=== PATIENT | male | born 1940 | race Caucasian/White ===

== ENCOUNTER 2023-10-14 05:21 | Inpatient (IN) | payer MEDICARE, MEDICAID, SELFPAY ==
--- NOTE | 2023-10-14 03:55 | ADMGEN ---
This patient, Davis Michael, was admitted to Medical Room 347-. Patient/family oriented to hospital policies and general routines including ID bracelet, bed and alarms, visiting hours, pain management, procedures, bathroom and other care routines, personal items, smoking policy, room service/diet, and visiting hours. Information on how to activate the Rapid Response Team has been discussed. Patient/Family are encouraged to report perceived risks to care and to ask questions if they do not understand what they are told or what they should do.
[2023-10-14 04:09] VITALS: BMI 28.6
[2023-10-14 06:00] VITALS: BP 156/84; PULSE 106; RESP 21; TEMP 36.3; O2SAT 100
[2023-10-14 06:10] LABS: Bacteria Urine None Seen /hpf; RBC Urine >100 /hpf (0-2); Squamous Epithelial Cell Urine None Seen /hpf (Few); WBC Urine >100 /hpf (0-3)
[2023-10-14 06:11] LABS: Appearance Urine Cloudy (Clear); Bilirubin Urine Negative (Negative); Blood Urine 3+ (Negative); Glucose Urine UA Negative (Negative); Ketones Urine Negative (Negative); Leukocyte Esterase Ur 3+ LEU/UL (Negative); Nitrate Urine Negative (Negative); Protein Urine 1+ mg/dL (Negative); Specific Grav Ur 1.016 (1.001-1.035); Urobilinogen Urine 0.2 mg/dL (<2.0); pH Urine 7.5 (5.0-9.0)
[2023-10-14 06:17] LABS: Color Urine Yellow (Yellow)
[2023-10-14 06:18] LABS: Add Urine Microscopic? YES
[2023-10-14 07:01] LABS: Basophils Percent Auto 0.4 % (0.2-1.2); Eosinophils Absolute Auto 0.1 K/mm3 (0-0.3); Eosinophils Percent Auto 0.6 % (0-4.4); Hematocrit 37.8 % (42.0-52.0); Hemoglobin 12.6 g/dL (14.0-18.0); Immature Granulocyte Absolute 0.04 K/mm3 (0.00-0.031); Immature Granulocyte Percent A 0.5 % (0-0.5); Lymphocytes Absolute Auto 0.66 K/mm3 (0.9-3.2); Lymphocytes Percent Auto 7.7 % (18.3-44.2); Mean Corpuscular HGB Conc 33.3 g/dl (32-36); Mean Corpuscular Hemoglobin 30.7 pg (26-34); Mean Platelet Volume 9.8 fl (7.4-10.4); Monocytes Absolute Auto 0.6 K/mm3 (0.1-0.6); Monocytes Percent Auto 6.4 % (2.6-8.5); Neutrophils Absolute Auto 7.2 K/mm3 (1.3-6.7); Neutrophils Percent Auto 84.4 % (45.5-73.1); Platelet Count Result 206 k/mm3 (150-375); Red Blood Count 4.11 M/mm3 (4.6-6.20); Red Cell Distribution Width 13.9 % (11.5-14.5); White Blood Count 8.6 K/mm3 (4.5-10.0)
[2023-10-14] MEDS: traMADol HCL (*CRX) 50 MG TABLET PO (07:05)
[2023-10-14] MEDS: LEVOTHYROXINE SODIUM 125 MCG TABLET PO (07:07)
[2023-10-14 07:11] LABS: Lactic Acid Reflex 1.6 mmol/L (0.7-2.0)
[2023-10-14 07:15] LABS: Anion Gap 9 mmol/L (4-12); Blood Urea Nitrogen 17 mg/dL (9-20); Calcium 9.3 mg/dL (8.4-10.2); Carbon Dioxide 25 mmol/L (22-30); Chloride 107 mmol/L (98-107); Estimated Glomerular Filt Rate > 60; Glucose 143 mg/dL (65-110); Magnesium 2.1 mg/dL (1.6-2.3); Potassium 4.3 mmol/L (3.4-5.0); Sodium 141 mmol/L (137-145)
[2023-10-14 07:16] LABS: INR 1.1; Prothrombin Time 14.4 Seconds (11.1-14.7)
[2023-10-14 07:18] LABS: Partial Thromboplastin Time 27.9 Seconds (22.3-36.8)
--- NOTE | 2023-10-14 07:29 | PM.IMHP ---
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 Patient is a poor historian and most of history was obtained from previous medical records. Patient originally presented to [facility] from [facility] complaining of lower belly pain, some back pain and was noted to have some blood coming from his penis on to his depends. Workup in the hospital included labs which which revealed a white blood cell count of 7.94, hemoglobin 11.7, creatinine 1.29. A UA was obtained which shown trace leukocyte, 3+ protein, trace ketone, 1 urobilinogen, 3+ blood, trace bacteria. CT of the abdomen and pelvis without contrast shown left hydro ureter pelviectasis and mildly delayed left nephrogram without any calculi which could be from a recently passed kidney stone, there is an incidentally noted 1.7 cm cystic lesion in the pancreatic tail, mild lingular tree-in-bud nodularity. Patient was given Zosyn and IV fluids while at [facility]. Camargo was placed at [facility] and manually irrigated with 1 L and CBI was started. Patient was transferred to [facility] for higher level of care as they do not have Urology services at [facility] in [place]. Blood cultures were also obtained at outside hospital. Labs revealed WBC 8.6, Hgb 12.6, INR 1.1. UA was obtained which shown a urine protein 1+, 3+ urine blood, 3+ leukocyte, >100 urine RBC, > 100 urine WBC. Urine culture was obtained and is pending. Review of Systems Review of Systems: ROS unobtainable: Yes unobtainable due to mental status [facility] Past Medical History Medical History (Updated 10/14/23 @ 14:03 by Denita Jackson APRN) Arthritis Bladder cancer Blindness Glaucoma Gross hematuria Hyperlipidemia Hypertension Hypothyroidism Prostate cancer Stroke Surgical History Surgical History H/O cystoscopy H/O knee surgery History of bladder surgery Family History Family History Mother Alzheimer's dementia Father Cancer Sibling Cancer Social History Social History Smoking status: Former smoker Tobacco type: cigarettes Alcohol intake: former Drinks per week: 1 Alcohol use details: 1 Beer a week Substance use: never Do You Feel Safe in your Home?: Yes Lack of Transportation: No Lack of Food: Never True Current Housing: I Have Housing Concerned About Future Housing: No Difficulty Paying Gas/Electric Bills: No Difficulty Paying for Meds: No Currently Unemployed: No Education: Don't Know Difficulty w/ Childcare or Family Care: No Spiritual care concerns: No Meds Home Medications and Allergies Home Medications Medication Instructions Recorded Confirmed Type acetaminophen 650 mg tablet 650 mg PO Q4H PRN Pain (Scale 10/14/23 10/14/23 History Score 1-3) aspirin 81 mg tablet 81 mg PO DAILY 10/14/23 10/14/23 History brimonidine 0.15 % eye drops 1 drp EACH EYE TID 10/14/23 10/14/23 History cholecalciferol (vitamin D3) 1,000 caplet PO DAILY 10/14/23 10/14/23 History diltiazem HCl 60 mg tablet 60 mg PO Q12H 10/14/23 10/14/23 History docusate sodium 100 mg capsule 100 mg PO BID 10/14/23 10/14/23 History dorzolamide 22.3 mg-timolol 6.8 1 drp EACH EYE TID 10/14/23 10/14/23 History mg/mL eye drops ferrous sulfate 325 mg (65 mg 325 mg PO EVERY OTHER DAY 10/14/23 10/14/23 History
--- NOTE | 2023-10-14 07:45 | PC.NURSE ---
RN gave update to patient's daughter Tierney via telephone.
[2023-10-14] MEDS: CHOLECALCIFEROL 1,000 UNITS TABLET 1000 UNITS PO (09:09)
[2023-10-14] MEDS: DORZOLAMIDE/TIMOLOL OPHTH SOL 10 ML BOTTLE 1 DROP EACH EYE ×2 (09:09→16:51)
[2023-10-14] MEDS: GABAPENTIN 300 MG CAPSULE PO ×2 (09:09→16:51)
[2023-10-14] MEDS: BRIMONIDINE TARTRATE 0.15% 5 ML OPHTH SOLN 1 DROP EACH EYE ×2 (09:09→16:51)
[2023-10-14] MEDS: PANTOPRAZOLE 40 MG TABLET PO (09:09)
[2023-10-14] MEDS: FLUOROMETHOLONE 0.1% OP SUSP 5 ML BTL 1 DROP RIGHT EYE ×2 (09:09→16:51)
[2023-10-14] MEDS: FOLIC ACID 1 MG TABLET PO (09:09)
[2023-10-14] MEDS: ASPIRIN 81 MG ENTERIC TABLET PO (09:09)
[2023-10-14] MEDS: DOCUSATE SODIUM 100 MG CAPSULE PO ×2 (09:09→16:51)
[2023-10-14] MEDS: LOSARTAN POTASSIUM 50 MG TABLET PO (09:09)
[2023-10-14] MEDS: dilTIAZem HCL 60 MG TABLET PO ×2 (09:14→20:08)
--- NOTE | 2023-10-14 09:44 | WPDURCON ---
Assessment and Plan Assessment and plan (1) Gross hematuria: Code(s): R31.0 - Gross hematuria Status: Acute Assessment and Plan: Likely secondary to bladder cancer. Urine is clear at this time. No need for acute urologic intervention. (2) Bladder cancer: Code(s): C67.9 - Malignant neoplasm of bladder, unspecified Status: Acute Assessment and Plan: S/p TURBT with gemcitabine instillation 08/26/2023. Plan was for follow-up in 2 weeks to discuss pathology and consider BCG. Unsure if this follow-up has been completed yet. He will need to continue with close follow-up with his primary urologist Urology Consult Note HPI Date Seen: 10/14/23 Requesting Physician: Zonia Staples MD Primary Care Provider: Tarun Pulliam M.D. Consult Narrative Narrative: Davis Michael is a 82 year old male with history of high-grade bladder cancer s/p multiple bladder tumor resections and gemcitabine installation, most recently 08/26/2023 managed at [facility] in [place] who is being seen in consultation for gross hematuria. He presented to [facility] on 10/13/2023 from his nursing facility with findings of gross hematuria. On arrival, his vital signs were stable, he was afebrile, WBC was 7.9, creatinine 1.29, lactic within normal limits, UA with trace leukocytes, negative nitrates, 3+ blood, 0-[address] of his abdomen/pelvis was completed which showed bilateral cortical renal atrophy, [id number] left pelviectasis, moderate left hydroureter, mild distal right hydroureter, and decompressed bladder with presence of air, Camargo catheter in place. Patient is a very poor historian and not able to provide much history. He states that he typically voids spontaneously and does not have a chronic indwelling Camargo, therefore it seems that Camargo was placed in the ER, though this is unclear. The patient denies any precipitating symptoms. He is unable to provide any additional history. At the time of my evaluation, his vital signs are stable and he is afebrile, his white blood cell count remains within normal limits in creatinine is 1.0. Urine culture collected at this facility is pending. Review of Systems Review of Systems: ROS unobtainable: Yes unobtainable due to mental status [facility] Past Medical History Medical History (Updated 10/14/23 @ 14:03 by Denita Jackson APRN) Arthritis Bladder cancer Blindness Glaucoma Gross hematuria Hyperlipidemia Hypertension Hypothyroidism Prostate cancer Stroke Surgical History Surgical History H/O cystoscopy H/O knee surgery History of bladder surgery Family History Family History Mother Alzheimer's dementia Father Cancer Sibling Cancer Social History Social History Smoking status: Former smoker Tobacco type: cigarettes Alcohol intake: former Drinks per week: 1 Alcohol use details: 1 Beer a week Substance use: never Do You Feel Safe in your Home?: Yes Lack of Transportation: No Lack of Food: Never True Current Housing: I Have Housing Concerned About Future Housing: No Difficulty Paying Gas/Electric Bills: No Difficulty Paying for Meds: No Currently Unemployed: No Education: Don't Know Difficulty w/ Childcare or Family Care: No Spiritual care concerns: No Meds Home Medications and Allergies Home Medications Medication Instructions Recorded Confirmed Type acetaminophen 650 mg tablet 650 mg PO Q4H PRN Pain (Scale 10/14/23 10/14/23 History Score 1-3) aspirin 81 mg tablet 81 mg PO DAILY 10/14/23 10/14/23 History brimonidine 0.15 % eye drops 1 drp EACH EYE TID 10/14/23 10/14/23 History cholecalciferol (vitamin D3) 1,000 caplet PO DAILY 10/14/23 10/14/23 History diltiazem HCl 60 mg tablet 60 mg PO Q12H 10/14/23 10/14/23 Histo
[2023-10-14 11:57] VITALS: BMI 28.6
[2023-10-14 12:00] VITALS: BP 140/59; PULSE 89; RESP 16; TEMP 37; O2SAT 94
[2023-10-14 20:00] VITALS: BP 148/67; PULSE 99; RESP 16; TEMP 36.4; O2SAT 94
[2023-10-14] MEDS: LATANOPROST 0.005% OP SOLN 2.5 ML BTL 1 DROP EACH EYE (20:08)
[2023-10-15 05:14] LABS: Basophils Percent Auto 0.5 % (0.2-1.2); Eosinophils Absolute Auto 0.1 K/mm3 (0-0.3); Eosinophils Percent Auto 1.6 % (0-4.4); Hemoglobin 12.8 g/dL (14.0-18.0); Immature Granulocyte Absolute 0.05 K/mm3 (0.00-0.031); Immature Granulocyte Percent A 0.8 % (0-0.5); Lymphocytes Absolute Auto 0.87 K/mm3 (0.9-3.2); Mean Corpuscular HGB Conc 32.8 g/dl (32-36); Mean Corpuscular Hemoglobin 30.5 pg (26-34); Mean Corpuscular Volume 93.1 fl (80-100); Monocytes Absolute Auto 0.6 K/mm3 (0.1-0.6); Monocytes Percent Auto 8.8 % (2.6-8.5); Neutrophils Absolute Auto 4.6 K/mm3 (1.3-6.7); Neutrophils Percent Auto 74.3 % (45.5-73.1); Platelet Count Result 234 k/mm3 (150-375); Red Blood Count 4.19 M/mm3 (4.6-6.20); Red Cell Distribution Width 13.5 % (11.5-14.5); White Blood Count 6.2 K/mm3 (4.5-10.0)
[2023-10-15 05:29] LABS: Alanine Aminotransferase 11 U/L (6-50); Albumin Level 4.1 g/dL (3.5-5.1); Alkaline Phosphatase 144 U/L (38-126); Anion Gap 7 mmol/L (4-12); Aspartate Amino Transferase 22 U/L (17-59); Bilirubin,Total 0.7 mg/dL (0.2-1.3); Blood Urea Nitrogen 16 mg/dL (9-20); Calcium 9.9 mg/dL (8.4-10.2); Carbon Dioxide 31 mmol/L (22-30); Chloride 104 mmol/L (98-107); Estimated CRCL calculation 52 ml/min; Estimated Glomerular Filt Rate > 60; Glucose 118 mg/dL (65-110); Potassium 3.6 mmol/L (3.4-5.0); Sodium 142 mmol/L (137-145)
[2023-10-15] MEDS: LEVOTHYROXINE SODIUM 125 MCG TABLET PO (05:55)
[2023-10-15 06:17] VITALS: BP 159/79; PULSE 96; RESP 20; TEMP 36.3; O2SAT 100
[2023-10-15] MEDS: GABAPENTIN 300 MG CAPSULE PO ×2 (09:37→17:31)
[2023-10-15] MEDS: PANTOPRAZOLE 40 MG TABLET PO (09:37)
[2023-10-15] MEDS: dilTIAZem HCL 60 MG TABLET PO ×2 (09:38→21:15)
[2023-10-15] MEDS: CHOLECALCIFEROL 1,000 UNITS TABLET 1000 UNITS PO (09:38)
[2023-10-15] MEDS: ASPIRIN 81 MG ENTERIC TABLET PO (09:38)
[2023-10-15] MEDS: FOLIC ACID 1 MG TABLET PO (09:38)
[2023-10-15] MEDS: DOCUSATE SODIUM 100 MG CAPSULE PO ×2 (09:38→17:31)
[2023-10-15] MEDS: LOSARTAN POTASSIUM 50 MG TABLET PO (09:38)
--- NOTE | 2023-10-15 12:32 | P.PNIM_ITS ---
Progress Note: A&P Assessment and Plan (1) Gross hematuria: Code(s): R31.0 - Gross hematuria Status: Acute Assessment and Plan: 10/14/2023: * Likely due to history of bladder cancer * Is normally followed by urologist at [facility] in [place] * Originally presented to [facility] in [place] where they placed a Camargo catheter and started CBI. He was transferred here for higher level of care as they do not have a urologist. Currently his urine is clear and yellow. CBI is not indicated at this time. * UA at [facility] was obtained which shown trace leukocyte, 3+ protein, trace ketone, 1 urobilinogen, 3+ blood, trace bacteria * Urine culture and blood cultures were obtained at [facility] in [place]. We also have a urine culture pending here. * He was given a dose of Zosyn while in the ED at [facility] 10/15/23: * Resolved (2) Urinary tract infection: Code(s): N39.0 - Urinary tract infection, site not specified Status: Acute Assessment and Plan: 10/14/23: * UA revealed 1+ urine protein, 3+ urine blood, 3+ leukocytes, urine RBC greater than 100 urine WBC greater than 100. * Urine culture was obtained and is pending * He also has blood and urine cultures from [facility] in [place] that are still pending * Will start Rocephin 10/15/23: * Continue Rocephin * Urine culture pending (3) Bladder cancer: Code(s): C67.9 - Malignant neoplasm of bladder, unspecified Status: Acute Assessment and Plan: 10/14/23: * History of high-grade bladder cancer status post multiple bladder tumor resections and gemcitabine installation, managed at [facility] in [place] and most recent treatment was on 08/26/2023. 10/15/23: * No change (4) Prostate cancer: Code(s): C61 - Malignant neoplasm of prostate Status: Acute Assessment and Plan: 10/14/23: * Status post TURBT with gemcitabine installation on 08/25/24 10/15/23: * No change (5) Hypertension: Code(s): I10 - Essential (primary) hypertension Status: Acute Assessment and Plan: 10/14/23: * Continue losartan 10/15/23: * No change to current treatment plan (6) Hyperlipidemia: Code(s): E78.5 - Hyperlipidemia, unspecified Status: Acute Assessment and Plan: 10/14/23: * Continue aspirin, not on any statin 10/15/23: * No change to current treatment plan (7) Blindness: Code(s): H54.7 - Unspecified visual loss Status: Chronic Assessment and Plan: 10/14/23: * Of note, likely due to his acute angle glaucoma (8) Hypothyroidism: Code(s): E03.9 - Hypothyroidism, unspecified Status: Acute Assessment and Plan: 10/14/23: * Continue Synthroid 10/15/23: * No change to current treatment plan (9) Glaucoma: Code(s): H40.9 - Unspecified glaucoma Status: Acute Assessment and Plan: 10/14/23: * Continue brimonidine, latanoprost, and timolol drops 10/15/23: * No change to current treatment plan Time Spent With Patient Time with patient: 25 - 35 minutes Subjective Date/time seen: 10/15/23 12:32 Interval history: 10/14/23: This is an 82 year old male with a significant past medical history of hypertension, acute angle closure glaucoma, hyperlipidemia, 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
--- NOTE | 2023-10-15 12:32 | PM.IMPN ---
Progress Note: A&P Assessment and Plan (1) Gross hematuria: Code(s): R31.0 - Gross hematuria Status: Acute Assessment and Plan: 10/14/2023: Likely due to history of bladder cancer Is normally followed by urologist at [facility] in [place] Originally presented to [facility] in [place] where they placed a Camr[place] catheter and started CBI. He was transferred here for higher level of care as they do not have a urologist. Currently his urine is clear and yellow. CBI is not indicated at this time. UA at [facility] was obtained which shown trace leukocyte, 3+ protein, trace ketone, 1 urobilinogen, 3+ blood, trace bacteria Urine culture and blood cultures were obtained at [facility] in [place]. We also have a urine culture pending here. He was given a dose of Zosyn while in the ED at [facility] 10/15/23: Resolved (2) Urinary tract infection: Code(s): N39.0 - Urinary tract infection, site not specified Status: Acute Assessment and Plan: 10/14/23: UA revealed 1+ urine protein, 3+ urine blood, 3+ leukocytes, urine RBC greater than 100 urine WBC greater than 100. Urine culture was obtained and is pending He also has blood and urine cultures from [facility] in [place] that are still pending Will start Rocephin 10/15/23: Continue Rocephin Urine culture pending (3) Bladder cancer: Code(s): C67.9 - Malignant neoplasm of bladder, unspecified Status: Acute Assessment and Plan: 10/14/23: History of high-grade bladder cancer status post multiple bladder tumor resections and gemcitabine installation, managed at [facility] in [place] and most recent treatment was on 08/26/2023. 10/15/23: No change (4) Prostate cancer: Code(s): C61 - Malignant neoplasm of prostate Status: Acute Assessment and Plan: 10/14/23: Status post TURBT with gemcitabine installation on 08/25/24 10/15/23: No change (5) Hypertension: Code(s): I10 - Essential (primary) hypertension Status: Acute Assessment and Plan: 10/14/23: Continue losartan 10/15/23: No change to current treatment plan (6) Hyperlipidemia: Code(s): E78.5 - Hyperlipidemia, unspecified Status: Acute Assessment and Plan: 10/14/23: Continue aspirin, not on any statin 10/15/23: No change to current treatment plan (7) Blindness: Code(s): H54.7 - Unspecified visual loss Status: Chronic Assessment and Plan: 10/14/23: Of note, likely due to his acute angle glaucoma (8) Hypothyroidism: Code(s): E03.9 - Hypothyroidism, unspecified Status: Acute Assessment and Plan: 10/14/23: Continue Synthroid 10/15/23: No change to current treatment plan (9) Glaucoma: Code(s): H40.9 - Unspecified glaucoma Status: Acute Assessment and Plan: 10/14/23: Continue brimonidine, latanoprost, and timolol drops 10/15/23: No change to current treatment plan Time Spent With Patient Time with patient: 25 - 35 minutes Subjective Date/time seen: 10/15/23 12:32 Interval history: 10/14/23: This is an 82 year old male with a significant past medical history of hypertension, acute angle closure glaucoma, hyperlipidemia, 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 in [place], [place] for further evaluation of hematuria. Patient is a poor historian and most of history was obtained from previous medical records. Patient originally presented to [facility] complaining of lower belly pain, some back pain and was noted to have some blood coming from his penis on to his depends. Workup in the hospital included labs which which revealed a white blood cell count of 7.94
[2023-10-15 14:03] VITALS: BP 120/69; PULSE 94; RESP 19; TEMP 36.7; O2SAT 95
--- NOTE | 2023-10-15 14:50 | WPDUROPN2 ---
Progress Note: A&P Assessment and Plan (1) Gross hematuria: Code(s): R31.0 - Gross hematuria Status: Resolved Assessment and Plan: Resolved. Likely secondary to bladder cancer. Urine is clear at this time. No need for acute urologic intervention. Urine culture pending (2) Bladder cancer: Code(s): C67.9 - Malignant neoplasm of bladder, unspecified Status: Acute Assessment and Plan: S/p TURBT with gemcitabine instillation 08/26/2023. Plan was for follow-up in 2 weeks to discuss pathology and consider BCG. Unsure if this follow-up has been completed yet. He will need to continue with close follow-up with his primary urologist. Will need to be in touch with his nursing facility/family to ensure outpatient follow-up is being arranged appointments being kept Subjective Subjective Date/Time Seen: 10/15/23 14:50 Interval history: Doing well today. Not able to provide any history. Patient sitter at the bedside. Review of Systems Review of Systems: ROS unobtainable: Yes unobtainable due to mental status Exam Narrative: General: Awake, alert, comfortable, no acute distress HEENT: Normocephalic, atraumatic, blind, hard of hearing Respiratory: Normal respiratory effort, no accessory muscle use Abdomen: Nondistended, soft, nontender : Camargo catheter draining clear, light pink urine Skin: Normal coloration, warm and dry Psychiatric: Pleasantly confused, poor judgment insight Objective Data Vital Signs Vital Signs: Vital Signs - 24 hr 10/14/23 20:00 10/15/23 06:17 10/15/23 08:00 Temperature 97.5 F L 97.4 F L Pulse Rate 99 96 Respiratory Rate 16 20 Blood Pressure 148/67 H 159/79 H Pulse Oximetry 94 100 Oxygen Delivery Room Air 10/15/23 14:03 Temperature 98.1 F Pulse Rate 94 Respiratory Rate 19 Blood Pressure 120/69 Pulse Oximetry 95 Oxygen Delivery Intake/Output Intake/Output: Intake & Output 10/12/23 10/13/23 10/14/23 10/15/23 23:59 23:59 23:59 23:59 Intake Total 1650 360 Output Total 1500 1800 Balance 150 -1440 Meds/Results Medications: Active Medications Generic Name Dose Route Start Last Admin Trade Name Freq PRN Reason Stop Dose Admin Acetaminophen 650 mg 10/14/23 05:31 Acetaminophen 325 Mg Tablet PO Q4H PRN Mild Pain (1-3) or Fever Al Hydrox/Mg Hydrox/Simethicone 30 ml 10/14/23 05:31 Mag Hydrox/Al Hydrox/Simeth 30 Ml Udc PO QID PRN Dyspepsia Aspirin 81 mg 10/14/23 09:00 10/15/23 09:38 Aspirin 81 Mg Enteric Tablet PO 81 mg QAM DAISHA Administration Brimonidine Tartrate 1 drop 10/14/23 09:00 10/15/23 14:19 Brimonidine Tartrate 0.15% 5 Ml Ophth Soln EACH EYE Not Given TID DAISHA Diltiazem HCl 60 mg 10/14/23 09:00 10/15/23 09:38 Diltiazem Hcl 60 Mg Tablet PO 60 mg Q12HR [facility] Administration Docusate Sodium 100 mg 10/14/23 09:00 10/15/23 09:38 Docusate Sodium 100 Mg Capsule PO 100 mg BID DAISHA Administration Dorzolamide/Timolol 1 drop 10/14/23 09:00 10/15/23 14:19 Dorzolamide/Timolol Ophth Vivien 10 Ml Bottle EACH EYE Not Given TID [facility] Ferrous Sulfate 325 mg 10/16/23 08:00 Ferrous Sulfate [address] BY MOUTH Q48H [facility] Fluorometholone 1 drop 10/14/23 09:00 10/15/23 14:20 Fluorometholone 0.1% Op Susp 5 Ml Btl RIGHT EYE Not Given BID [facility] Folic Acid 1 mg 10/14/23 09:00 10/15/23 09:38 Folic Acid 1 Mg Tablet PO 1 mg DAILY [facility] Administration Gabapentin 300 mg 10/14/23 09:00 10/15/23 09:37 Gabapentin 300 Mg Capsule PO 300 mg BID [facility] Administration Hydromorphone HCl 0.5 mg 10/14/23 05:54 Hydromorphone Hcl Inj (*Crx) 1 Mg/Ml Syr IV PUSH Q3H PRN Pain Rated 7-10 Ceftriaxone Sodium 1 gm in 50 mls @ 100 mls/hr 10/14/23 15:00 10/15/23 14:28 Rocephin 1 Gm/Ns 50 Ml IVPB 100 mls/hr Q24H DAISHA Administration Latanoprost 1 drop 10/14/23 21:00 10/14/23 20:08 Latanopro
[2023-10-15] MEDS: DORZOLAMIDE/TIMOLOL OPHTH SOL 10 ML BOTTLE 1 DROP EACH EYE ×2 (17:31→17:32)
[2023-10-15] MEDS: BRIMONIDINE TARTRATE 0.15% 5 ML OPHTH SOLN 1 DROP EACH EYE ×2 (17:31)
[2023-10-15] MEDS: FLUOROMETHOLONE 0.1% OP SUSP 5 ML BTL 1 DROP RIGHT EYE (17:37)
[2023-10-15 18:18] VITALS: BP 100/59; PULSE 93; RESP 18; TEMP 36.8; O2SAT 94
[2023-10-15 21:21] VITALS: BP 146/79; PULSE 96; RESP 16; TEMP 36.6; O2SAT 95
[2023-10-15] MEDS: LATANOPROST 0.005% OP SOLN 2.5 ML BTL 1 DROP EACH EYE (21:21)
[2023-10-15] MEDS: MELATONIN 3 MG TABLET 6 MG PO (23:20)
[2023-10-16] MEDS: LEVOTHYROXINE SODIUM 125 MCG TABLET PO (05:27)
[2023-10-16 05:36] LABS: Basophils Percent Auto 0.5 % (0.2-1.2); Eosinophils Absolute Auto 0.2 K/mm3 (0-0.3); Eosinophils Percent Auto 3.4 % (0-4.4); Hematocrit 36.8 % (42.0-52.0); Hemoglobin 12.2 g/dL (14.0-18.0); Immature Granulocyte Absolute 0.05 K/mm3 (0.00-0.031); Immature Granulocyte Percent A 0.9 % (0-0.5); Lymphocytes Absolute Auto 0.91 K/mm3 (0.9-3.2); Lymphocytes Percent Auto 16.3 % (18.3-44.2); Mean Corpuscular HGB Conc 33.2 g/dl (32-36); Mean Corpuscular Hemoglobin 30.5 pg (26-34); Mean Platelet Volume 10.1 fl (7.4-10.4); Monocytes Absolute Auto 0.5 K/mm3 (0.1-0.6); Monocytes Percent Auto 9.5 % (2.6-8.5); Neutrophils Absolute Auto 3.9 K/mm3 (1.3-6.7); Neutrophils Percent Auto 69.4 % (45.5-73.1); Platelet Count Result 229 k/mm3 (150-375); Red Cell Distribution Width 13.4 % (11.5-14.5); White Blood Count 5.6 K/mm3 (4.5-10.0)
[2023-10-16 05:48] LABS: Alanine Aminotransferase 9 U/L (6-50); Albumin Level 3.9 g/dL (3.5-5.1); Alkaline Phosphatase 131 U/L (38-126); Anion Gap 6 mmol/L (4-12); Aspartate Amino Transferase 17 U/L (17-59); Bilirubin,Total 0.5 mg/dL (0.2-1.3); Blood Urea Nitrogen 20 mg/dL (9-20); Calcium 9.4 mg/dL (8.4-10.2); Carbon Dioxide 29 mmol/L (22-30); Chloride 106 mmol/L (98-107); Estimated CRCL calculation 52 ml/min; Estimated Glomerular Filt Rate > 60; Glucose 138 mg/dL (65-110); Potassium 3.6 mmol/L (3.4-5.0); Sodium 141 mmol/L (137-145)
[2023-10-16 06:00] VITALS: BP 136/83; PULSE 79; RESP 20; TEMP 36.2; O2SAT 98
[2023-10-16] MEDS: CHOLECALCIFEROL 1,000 UNITS TABLET 1000 UNITS PO (08:09)
[2023-10-16] MEDS: DOCUSATE SODIUM 100 MG CAPSULE PO ×2 (08:09→16:30)
[2023-10-16] MEDS: FERROUS SULFATE 325 MG TABLET DR BY MOUTH (08:09)
[2023-10-16] MEDS: dilTIAZem HCL 60 MG TABLET PO (08:09)
[2023-10-16] MEDS: FOLIC ACID 1 MG TABLET PO (08:09)
[2023-10-16] MEDS: PANTOPRAZOLE 40 MG TABLET PO (08:09)
[2023-10-16] MEDS: GABAPENTIN 300 MG CAPSULE PO ×2 (08:09→16:30)
[2023-10-16] MEDS: ASPIRIN 81 MG ENTERIC TABLET PO (08:09)
[2023-10-16] MEDS: LOSARTAN POTASSIUM 50 MG TABLET PO (08:09)
[2023-10-16] MEDS: FLUOROMETHOLONE 0.1% OP SUSP 5 ML BTL 1 DROP RIGHT EYE ×2 (08:14→16:30)
[2023-10-16] MEDS: DORZOLAMIDE/TIMOLOL OPHTH SOL 10 ML BOTTLE 1 DROP EACH EYE ×3 (08:14→16:30)
[2023-10-16] MEDS: BRIMONIDINE TARTRATE 0.15% 5 ML OPHTH SOLN 1 DROP EACH EYE ×3 (08:14→16:30)
--- NOTE | 2023-10-16 09:29 | PM.DS ---
DS: Admitting Diagnosis Discharge Date 10/16/23 Admitting Diagnosis Gross hematuria Urinary tract infection Bladder cancer Prostate cancer Hypertension Hyperlipidemia Blindness Hypothyroidism Glaucoma DS: Discharge Diagnosis Discharge Diagnosis (1) Gross hematuria: Code(s): R31.0 - Gross hematuria Status: Resolved (2) Urinary tract infection: Code(s): N39.0 - Urinary tract infection, site not specified Status: Acute (3) Bladder cancer: Code(s): C67.9 - Malignant neoplasm of bladder, unspecified Status: Acute (4) Prostate cancer: Code(s): C61 - Malignant neoplasm of prostate Status: Acute (5) Hypertension: Code(s): I10 - Essential (primary) hypertension Status: Acute (6) Hyperlipidemia: Code(s): E78.5 - Hyperlipidemia, unspecified Status: Acute (7) Blindness: Code(s): H54.7 - Unspecified visual loss Status: Chronic (8) Hypothyroidism: Code(s): E03.9 - Hypothyroidism, unspecified Status: Acute (9) Glaucoma: Code(s): H40.9 - Unspecified glaucoma Status: Acute DS: Summary Hospital Course Reason for hospitalization: Gross hematuria Urinary tract infection Bladder cancer Prostate cancer Hypertension Hyperlipidemia Blindness Hypothyroidism Glaucoma Hospital Course: 10/14/23: This is an 82 year old male with a significant past medical history of hypertension, acute angle closure glaucoma, hyperlipidemia, 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 blindness, CVA who was a direct admit from [facility] in [place], [place] for further evaluation of hematuria. Patient is a poor historian and most of history was obtained from previous medical records. Patient originally presented to [facility] from residential facility complaining of lower belly pain, some back pain and was noted to have some blood coming from his penis on to his depends. Workup in the hospital included labs which which revealed a white blood cell count of 7.94, hemoglobin 11.7, creatinine 1.29. A UA was obtained which shown trace leukocyte, 3+ protein, trace ketone, 1 urobilinogen, 3+ blood, trace bacteria. CT of the abdomen and pelvis without contrast shown left hydro ureter pelviectasis and mildly delayed left nephrogram without any calculi which could be from a recently passed kidney stone, there is an incidentally noted 1.7 cm cystic lesion in the pancreatic tail, mild lingular tree-in-bud nodularity. Patient was given Zosyn and IV fluids while at [facility]. Roman was placed at [facility] and manually irrigated with 1 L and CBI was started. Patient was transferred to [place] for higher level of care as they do not have Urology services at [facility] in [place]. Blood cultures were also obtained at outside hospital. Labs revealed WBC 8.6, Hgb 12.6, INR 1.1. UA was obtained which shown a urine protein 1+, 3+ urine blood, 3+ leukocyte, >100 urine RBC, > 100 urine WBC. Urine culture was obtained and is pending. 10/15/23: Patient denies any new complaints today. Labs today show hemoglobin of 12.8 otherwise unremarkable. Urine cultures still pending, we will continue with Rocephin. 10/16/23: Patient denies any new complaints today. Labs are unremarkable. Urine culture was negative and Rocephin was discontinued. Hematuria is resolved. Patient has a chronic roman in place. He is stable for discharge back to his facility today. He will need to follow up with Urology for continued roman changes monthly. Final diagnosis: Gross hematuria, bladder cancer, prostate cancer Status at Discharge Cognitive/behavioral status at discharge: Alert to voice, oriented x1 Functional status at discharge: wheelchair bound Overall status at discharge: patient is progressing back to bas
[2023-10-16 09:31] VITALS: O2SAT 97
--- NOTE | 2023-10-16 09:36 | WPDUROPN2 ---
Progress Note: A&P Assessment and Plan (1) Gross hematuria: Code(s): R31.0 - Gross hematuria Status: Resolved Assessment and Plan: Resolved. Likely secondary to bladder cancer. Urine culture negative. No need for acute urologic intervention. Urine remains clear (2) Bladder cancer: Code(s): C67.9 - Malignant neoplasm of bladder, unspecified Status: Acute Assessment and Plan: S/p TURBT with gemcitabine instillation 08/26/2023. Plan was for follow-up in 2 weeks to discuss pathology and consider BCG. Unsure if this follow-up has been completed yet. He will need to continue with close follow-up with his primary urologist. Will need to be in touch with his nursing facility/family to ensure outpatient follow-up is being arranged and appointments being kept Plan Okay for discharge from urologic standpoint. Needs outpatient follow-up with his primary urologist Subjective Subjective Date/Time Seen: 10/16/23 09:36 Interval history: Doing well today. Reports no concerns. Not able to provide any reliable history Review of Systems Review of Systems: ROS unobtainable: Yes unobtainable due to mental status Exam Narrative: General: Awake, alert, comfortable, no acute distress HEENT: Normocephalic, atraumatic, blind, hard of hearing Respiratory: Normal respiratory effort, no accessory muscle use Abdomen: Nondistended, soft, nontender : Camargo catheter draining clear tellow urine Skin: Normal coloration, warm and dry Psychiatric: Pleasantly confused, poor judgment and insight Objective Data Vital Signs Vital Signs: Vital Signs - 24 hr 10/15/23 14:03 10/15/23 18:18 10/15/23 21:21 Temperature 98.1 F 98.2 F 97.8 F Pulse Rate 94 93 96 Respiratory Rate 19 18 16 Blood Pressure 120/69 100/59 L 146/79 H Pulse Oximetry 95 94 95 Oxygen Delivery 10/15/23 20:00 10/16/23 06:00 10/16/23 08:00 Temperature 97.1 F L Pulse Rate 79 Respiratory Rate 20 Blood Pressure 136/83 Pulse Oximetry 98 Oxygen Delivery Room Air Room Air 10/16/23 09:31 Temperature Pulse Rate Respiratory Rate Blood Pressure Pulse Oximetry 97 Oxygen Delivery Room Air Intake/Output Intake/Output: Intake & Output 10/13/23 10/14/23 10/15/2310/15/24 23:59 23:59 23:59 23:59 Intake Total 1650 830 660 Output Total 0024 5802 800 Balance 150 -8950 -140 Meds/Results Medications: Active Medications Generic Name Dose Route Start Last Admin Trade Name Bryon PRN Reason Stop Dose Admin Acetaminophen 650 mg 10/14/23 05:31 Acetaminophen 325 Mg Tablet PO Q4H PRN Mild Pain (1-3) or Fever Al Hydrox/Mg Hydrox/Simethicone 30 ml 10/14/23 05:31 Mag Hydrox/Al Hydrox/Simeth 30 Ml Udc PO QID PRN Dyspepsia Aspirin 81 mg 10/14/23 09:00 10/16/23 08:09 Aspirin 81 Mg Enteric Tablet PO 81 mg QAM DAISHA Administration Brimonidine Tartrate 1 drop 10/14/23 09:00 10/16/23 08:14 Brimonidine Tartrate 0.15% 5 Ml Ophth Soln EACH EYE 1 drop TID DAISHA Administration Diltiazem HCl 60 mg 10/14/23 09:00 10/16/23 08:09 Diltiazem Hcl 60 Mg Tablet PO 60 mg Q12HR DAISHA Administration Docusate Sodium 100 mg 10/14/23 09:00 10/16/23 08:09 Docusate Sodium 100 Mg Capsule PO 100 mg BID DAISHA Administration Dorzolamide/Timolol 1 drop 10/14/23 09:00 10/16/23 08:14 Dorzolamide/Timolol Ophth Vivien 10 Ml Bottle EACH EYE 1 drop TID DAISHA Administration Ferrous Sulfate 325 mg 10/16/23 08:00 10/16/23 08:09 Ferrous Sulfate [address] BY MOUTH 325 mg Q48H DAISHA Administration Fluorometholone 1 drop 10/14/23 09:00 10/16/23 08:14 Fluorometholone 0.1% Op Susp 5 Ml Btl RIGHT EYE 1 drop BID DAISHA Administration Folic Acid 1 mg 10/14/23 09:00 10/16/23 08:09 Folic Acid 1 Mg Tablet PO 1 mg DAILY DAISHA Administration Gabapentin 300 mg 10/14/23 09:00 10/16/23 08:09 Gabapentin 300 Mg Capsule PO 300 mg BI
[2023-10-16 12:00] VITALS: BP 129/70; PULSE 87; RESP 16; TEMP 36.8; O2SAT 96
[2023-10-16 12:34] LABS: SARS-CoV-2 RNA PCR Negative (Negative)
== END 2023-10-16 19:03 | DRG 687 ==
PROVIDERS: Nurse Practitioner Acute Care; Admitting Provider Internal Medicine; PCP Family Medicine; Visit Provider Internal Medicine
DX: C67.9 Malignant neoplasm of bladder, unspecified (principal); N39.0 Urinary tract infection, site not specified; C61 Malignant neoplasm of prostate; I10 Essential (primary) hypertension; E78.5 Hyperlipidemia, unspecified; E03.9 Hypothyroidism, unspecified; M19.90 Unspecified osteoarthritis, unspecified site; H40.20X0 Unspecified primary angle-closure glaucoma, stage unspecified; F03.90 Unspecified dementia, unspecified severity, without behavioral disturbance, psychotic disturbance, mood disturbance, and anxiety; Z86.73 Personal history of transient ischemic attack (TIA), and cerebral infarction without residual deficits; Z79.82 Long term (current) use of aspirin; Z87.891 Personal history of nicotine dependence
CPT/HCPCS: 36415; 80048; 80053; 81001; 83605; 83735; 84100; 85025; 85610; 85730; 87086; 87088; 87635; A9270; J0696